=== PATIENT | male | born 1985 | race American Indian/Alaskan Native ===

== ENCOUNTER 2021-06-15 12:02 | Emergency (ER) | payer MEDICAID ==
[2021-06-15 12:32] VITALS: BP 158/104; PULSE 84
[2021-06-15] MEDS ORDERED: Lidocaine 1% with EPINEPHrine 1:100,000 20 ML MDV INJECT ONE (13:51)
[2021-06-15 13:52] LABS: AMPHETAMINES,URINE NEGATIVE (NEGATIVE); BARBITURATES,URINE NEGATIVE (NEGATIVE); BENZODIAZEPINE,URINE NEGATIVE (NEGATIVE); MDMA (ECSTASY), URINE NEGATIVE (NEGATIVE); METHADONE,URINE NEGATIVE (NEGATIVE); METHAMPHETAMINES,URINE POSITIVE (NEGATIVE); OPIATES,URINE NEGATIVE (NEGATIVE); OXYCODONE,URINE NEGATIVE (NEGATIVE); PHENCYCLIDINE,URINE NEGATIVE (NEGATIVE); TCA,URINE NEGATIVE (NEGATIVE)
== END 2021-06-15 15:39 | disposition home or self-care (01) ==
LOC: DL.ED 12:02
DX: S01.01XA Laceration without foreign body of scalp, initial encounter (principal); W50.0XXA Accidental hit or strike by another person, initial encounter
CPT/HCPCS: 12002; 71045; 73090-LT; 73140-FA; 80305-QW; 99283-25; 99284

== ENCOUNTER 2023-10-29 18:53 | Emergency (ER) | payer BC ==
[2023-10-29] MEDS: Ketorolac 30 MG/ML SDV IM ONE (19:08)
[2023-10-29 19:20] VITALS: BP 159/103
[2023-10-29 19:41] VITALS: PULSE 88
== END 2023-10-29 19:39 | disposition home or self-care (01) ==
LOC: DL.ED 18:53
DX: S66.812A Strain of other specified muscles, fascia and tendons at wrist and hand level, left hand, initial encounter (principal); Z91.013 Allergy to seafood; W23.1XXA Caught, crushed, jammed, or pinched between stationary objects, initial encounter; Y93.67 Activity, basketball
CPT/HCPCS: 73120; 96372; 99283; J1885; 99282

== ENCOUNTER 2024-02-06 20:00 | Emergency (ER) | payer BC ==
[2024-02-06 20:12] VITALS: BP 159/111; PULSE 121
== END 2024-02-06 20:45 | disposition home or self-care (01) ==
LOC: DL.ED 20:00
DX: M79.644 Pain in right finger(s) (principal); Z91.013 Allergy to seafood
CPT/HCPCS: 99282; 99283

== ENCOUNTER 2024-05-28 20:26 | Inpatient (IN) | payer BC ==
[2024-05-28 21:22] LABS: BASOPHILS PERCENT AUTO 0.2 % (0.0-1.0); EOSINOPHILS PERCENT AUTO 0.5 % (1.0-3.0); HEMATOCRIT 47.9 % (40.0-54.0); LYMPHOCYTES PERCENT AUTO 8.4 % (20.5-50.1); MEAN CORPUSCULAR HEMOGLOBIN 28.4 pg (27.0-34.0); MEAN CORPUSCULAR HGB CONC 33.4 g/dL (33.0-35.0); MEAN CORPUSCULAR VOLUME 85.1 fL (80-100); MONOCYTES PERCENT AUTO 8.8 % (2-8); NEUTROPHILS PERCENT AUTO 82.1 % (42.2-75.2); PLATELET COUNT,PLT 331 10^3/uL (150-450); RED BLOOD CELL COUNT 5.63 10^6/uL (4.6-6.2); WHITE BLOOD CELL COUNT,WBC 19.5 10^3/uL (5.0-10.0)
[2024-05-28] MEDS: Sodium Chloride 0.9% 1,000 ML IV ONE ×2 (21:25→21:59)
[2024-05-28] MEDS: Ketorolac 30 MG/ML SDV IVPUSH ONE (21:25)
[2024-05-28 21:46] LABS: ALANINE AMINOTRANSFERASE,ALT 34 U/L (16-63); ALKALINE PHOSPHATASE 110 U/L (46-116); ANION GAP 20.3 mEq/L (7-13); ASPARTATE AMNIOTRANSFERASE,AST 22 U/L (15-37); BILIRUBIN TOTAL 2.3 mg/dL (0.2-1.0); BLOOD UREA NITROGEN,BUN 15 mg/dL (7-18); BUN/CREATININE RATIO 11.5 (No establ ref range); CALCIUM 9.4 mg/dL (8.5-10.1); CARBON DIOXIDE,CO2 22 mmol/L (21-32); CHLORIDE,CL 100 mmol/L (98-107); EST CRCL DRUG DOSING (CG) 82.86 mL/min; ETHANOL BLOOD MEDICAL 56 mg/dL (0); GLUCOSE RANDOM 112 mg/dL (70-99); MAGNESIUM 2.3 mg/dL (1.8-2.4); POTASSIUM,K 3.3 mmol/L (3.5-5.1); PROTEIN TOTAL,TP 8.1 g/dL (6.4-8.2); SODIUM,NA 139 mmol/L (136-145)
[2024-05-28 21:48] LABS: C-REACTIVE PROTEIN > 25.00 ng/dL (<=0.50); ESTIMATED GFR 73 mL/min (>=60)
[2024-05-28 21:51] LABS: LACTIC ACID 3.3 mmol/L (0.4-2.0)
[2024-05-28] MEDS: VANCOmycin 1.75 GM in Sodium Chloride 0.9% 500 ML IV ONE (21:57)
[2024-05-28] MEDS: Potassium Chloride 10 MEQ Tab.ER PO ONE (21:58)
[2024-05-28] MEDS: Sodium Chloride 0.9% 500 ML ONE (22:19)
[2024-05-28] MEDS ORDERED: oxyCODONE 5 MG Tab PO PRN (22:52)
[2024-05-28] MEDS ORDERED: Morphine 2 MG/ML SYRINGE IVPUSH PRN (22:53)
[2024-05-28] MEDS ORDERED: Ondansetron 4 MG/2 ML SDV IVPUSH PRN (22:54)
[2024-05-28] MEDS ORDERED: Docusate Sodium 100 MG Cap PO PRN (22:54)
[2024-05-28] MEDS: Piperacillin/Tazobactam 3.375 GM in Sodium Chloride 0.9% 100 ML IV SCH (23:57)
[2024-05-29] MEDS: Sodium Chloride 0.9% 1,000 ML IV SCH
[2024-05-29] MEDS: Sodium Chloride 0.9% 500 ML IV ONE
[2024-05-29] MEDS: Sodium Chloride 0.9% 0 ML ONE (00:01)
[2024-05-29] MEDS: Acetaminophen 325 MG Tab PO SCH (00:02)
[2024-05-29] MEDS: Ibuprofen 600 MG Tab PO SCH (00:03)
[2024-05-29] MEDS: Diphtheria,Pertussis(Acell),Tetanus Vaccine 0.5 ML Syringe IM ONE (00:04)
[2024-05-29 01:52] LABS: LACTIC ACID 1.2 mmol/L (0.4-2.0)
[2024-05-29] MEDS: Heparin Sodium 5,000 Units/ML Vial SUBCUT SCH (05:43)
[2024-05-29 06:38] LABS: BASOPHILS PERCENT AUTO 0.1 % (0.0-1.0); EOSINOPHILS PERCENT AUTO 1.6 % (1.0-3.0); HEMATOCRIT 38.8 % (40.0-54.0); HEMOGLOBIN 12.8 g/dL (14.0-18.0); LYMPHOCYTES PERCENT AUTO 11.1 % (20.5-50.1); MEAN CORPUSCULAR VOLUME 87.8 fL (80-100); MONOCYTES PERCENT AUTO 10.9 % (2-8); NEUTROPHILS PERCENT AUTO 76.3 % (42.2-75.2); PLATELET COUNT,PLT 286 10^3/uL (150-450); RED BLOOD CELL COUNT 4.42 10^6/uL (4.6-6.2); WHITE BLOOD CELL COUNT,WBC 13.9 10^3/uL (5.0-10.0)
[2024-05-29 07:00] LABS: ALBUMIN 2.6 g/dL (3.4-5.0); ANION GAP 13.1 mEq/L (7-13); BILIRUBIN DIRECT 0.3 mg/dL (0.0-0.2); BILIRUBIN INDIRECT 0.9; BILIRUBIN TOTAL 1.2 mg/dL (0.2-1.0); CALCIUM 7.8 mg/dL (8.5-10.1); CREATININE 1.12 mg/dL (0.70-1.30); EST CRCL DRUG DOSING (CG) 96.18 mL/min; MAGNESIUM 2.2 mg/dL (1.8-2.4); POTASSIUM,K 4.1 mmol/L (3.5-5.1); PROTEIN TOTAL,TP 5.6 g/dL (6.4-8.2); VANCOMYCIN RANDOM 13.4 ug/mL (No Normal Range)
[2024-05-29 07:04] LABS: A/G RATIO 0.87
[2024-05-29] MEDS: VANCOmycin 1.25 GM in Sodium Chloride 0.9% 250 ML IV SCH (09:36)
[2024-05-29] MEDS ORDERED: VANCOmycin 1 GM in Sodium Chloride 0.9% 250 ML IV SCH (11:00)
[2024-05-29] MEDS: FLU (Flulaval Triv) 24-25(6MOS UP)/PF 45 MCG/0.5 ML Syringe IM ONE (12:46)
[2024-05-29] MEDS: Iopamidol 612 MG/ML 100 ML Bottle IVPUSH ONE (12:55)
[2024-05-30] MEDS: VANCOmycin 1.25 GM in Sodium Chloride 0.9% 250 ML IV SCH (00:08)
[2024-05-30] MEDS: Sodium Chloride 0.9% 10 ML Syringe FLUSH PRN (00:13)
[2024-05-30] MEDS: Piperacillin/Tazobactam 4.5 GM in Sodium Chloride 0.9% 100 ML IV SCH (00:13)
[2024-05-30 07:52] LABS: CREATININE 0.89 mg/dL (0.70-1.30); EST CRCL DRUG DOSING (CG) 121.03 mL/min; VANCOMYCIN RANDOM 10.2 ug/mL (No Normal Range)
[2024-05-30] MEDS: VANCOmycin 1.75 GM in Sodium Chloride 0.9% 500 ML IV SCH (10:43)
[2024-05-30] MEDS: Clindamycin in 0.9 % Sod Chlor 600 MG in Premix Bag 1 BAG IV SCH (12:06)
[2024-05-31 06:51] LABS: BASOPHILS PERCENT AUTO 0.3 % (0.0-1.0); EOSINOPHILS PERCENT AUTO 3.2 % (1.0-3.0); HEMATOCRIT 41.3 % (40.0-54.0); HEMOGLOBIN 13.7 g/dL (14.0-18.0); LYMPHOCYTES PERCENT AUTO 16.6 % (20.5-50.1); MEAN CORPUSCULAR HEMOGLOBIN 28.8 pg (27.0-34.0); MEAN CORPUSCULAR HGB CONC 33.2 g/dL (33.0-35.0); MEAN CORPUSCULAR VOLUME 86.9 fL (80-100); MONOCYTES PERCENT AUTO 11.4 % (2-8); NEUTROPHILS PERCENT AUTO 68.5 % (42.2-75.2); PLATELET COUNT,PLT 328 10^3/uL (150-450); RED BLOOD CELL COUNT 4.75 10^6/uL (4.6-6.2); WHITE BLOOD CELL COUNT,WBC 9.2 10^3/uL (5.0-10.0)
[2024-05-31 07:17] LABS: CREATININE 0.95 mg/dL (0.70-1.30); EST CRCL DRUG DOSING (CG) 113.39 mL/min; VANCOMYCIN RANDOM 13.3 ug/mL (No Normal Range)
[2024-05-31] MEDS: Furosemide 20 MG/2 ML VIAL IVPUSH ONE (10:45)
[2024-06-01 06:39] LABS: BASOPHILS PERCENT AUTO 0.5 % (0.0-1.0); HEMATOCRIT 44.1 % (40.0-54.0); LYMPHOCYTES PERCENT AUTO 22.3 % (20.5-50.1); MEAN CORPUSCULAR HEMOGLOBIN 29.4 pg (27.0-34.0); MEAN CORPUSCULAR VOLUME 86.5 fL (80-100); MONOCYTES PERCENT AUTO 11.1 % (2-8); NEUTROPHILS PERCENT AUTO 62.1 % (42.2-75.2); PLATELET COUNT,PLT 354 10^3/uL (150-450); WHITE BLOOD CELL COUNT,WBC 6.5 10^3/uL (5.0-10.0)
[2024-06-01 07:02] LABS: ANION GAP 14.9 mEq/L (7-13); CALCIUM 9.3 mg/dL (8.5-10.1); CREATININE 0.97 mg/dL (0.70-1.30); EST CRCL DRUG DOSING (CG) 111.05 mL/min; POTASSIUM,K 3.9 mmol/L (3.5-5.1); VANCOMYCIN RANDOM 13.2 ug/mL (No Normal Range)
[2024-06-02 07:03] LABS: CREATININE 1.02 mg/dL (0.70-1.30); EST CRCL DRUG DOSING (CG) 105.61 mL/min
[2024-06-02 07:35] VITALS: BP 119/67; PULSE 54
[2024-06-02] MEDS: FLU (Fluarix Triv) TS24-25(6MOS UP)/PF 45 MCG/0.5 ML Syringe IM ONE (11:15)
== END 2024-06-02 11:21 | disposition home or self-care (01) | DRG 720 ==
LOC: DL.ED 20:26 → DL.MS 21:59
PROVIDERS: ADMIT Internal Medicine; ATTEND Internal Medicine
DX: A41.9 Sepsis, unspecified organism (principal); R65.20 Severe sepsis without septic shock; N17.9 Acute kidney failure, unspecified; E87.20 Acidosis, unspecified; L03.113 Cellulitis of right upper limb; F43.10 Post-traumatic stress disorder, unspecified; F17.210 Nicotine dependence, cigarettes, uncomplicated; F12.90 Cannabis use, unspecified, uncomplicated; F15.90 Other stimulant use, unspecified, uncomplicated; E86.0 Dehydration; E87.6 Hypokalemia; Z79.1 Long term (current) use of non-steroidal anti-inflammatories (NSAID); Z91.013 Allergy to seafood; Z79.899 Other long term (current) drug therapy
CPT/HCPCS: 36415; 73120-RT; 73201-RT; 80048; 80053; 80076; 80202; 80307; 82565; 83605; 83735; 85025; 86140; 87040; 90656; 90715; 94010; 96374; 97140-GO; 97165-GO; 99223; 99232; 99233; 99239; 99284-25; 99285; A9270-GY; G0008; J0737; J1644; J1885; J1940; J2543; J3371; J7030; J7040; Q9967

== ENCOUNTER 2024-07-25 15:22 | Emergency (ER) | payer SELFPAY ==
[2024-07-25 15:58] VITALS: BP 150/120; PULSE 99
[2024-07-25] MEDS: Lidocaine 1% 5 ML VIAL INJECT ONE (16:24)
[2024-07-25] MEDS: Ketorolac 30 MG/ML SDV IVPUSH ONE (16:25)
[2024-07-25] MEDS: Diphtheria,Pertussis(Acell),Tetanus Vaccine 0.5 ML Syringe ONE (18:36)
[2024-07-25] MEDS: Non-Formulary Medication 1 Each IM ONE (18:38)
== END 2024-07-25 17:10 | disposition home or self-care (01) ==
LOC: DL.ED 15:22
DX: S01.81XA Laceration without foreign body of other part of head, initial encounter (principal); F17.210 Nicotine dependence, cigarettes, uncomplicated; Z23 Encounter for immunization; Z91.013 Allergy to seafood; Z79.899 Other long term (current) drug therapy; V17.0XXA Pedal cycle driver injured in collision with fixed or stationary object in nontraffic accident, initial encounter; Y93.55 Activity, bike riding
CPT/HCPCS: 12011; 90471; 90715; 96374; 99283; J1885; J2003; 99282